=== PATIENT | female | born 1965 ===

== ENCOUNTER 2018-10-30 13:16 | Emergency (ER) | payer OTHER ==
[~2018-10-30] VITALS: Ht 160 cm; Wt 72.6 kg
[2018-10-30] MEDS ORDERED: ONDANSETRON ODT 4 MG TAB.RAPDIS SL ONE (13:45)
[2018-10-30] MEDS ORDERED: MORPHINE SULFATE 4 MG/1 ML DISP.SYRIN IM ONE (13:45)
[2018-10-30] MEDS ORDERED: ONDANSETRON ODT 4 MG TAB.RAPDIS ONE (13:52)
[2018-10-30] MEDS ORDERED: MORPHINE SULFATE 4 MG/1 ML DISP.SYRIN ONE (13:52)
--- NOTE | 2018-10-30 14:04 | NUR ---
Note undone in EDM - 10/30/18 at 1441 by NOE MSE COMPLETED, AL;L FLUIDS AND ANTIBIOTOCS,MEDS ADMIN AND CDOCUMENTED. PRESENTLY MONITOR SHOWS NSR, PO2=96% ON ROOMAIR, BP=96/60, ORAL TEMP=99.6. BELONGINGS LIST/MRSA-NARES SWAB DONE. AWAITING FOR YADIRA GOTTLIEB TO CALL BACK FOR REPORT. PT STATED"I FEEL MUCH BETTER!"
[2018-10-30] MEDS ORDERED: KETOROLAC TROMETHAMINE 60 MG INJ IM ONE ×2 (14:30→14:32)
--- NOTE | 2018-10-30 14:41 | NUR ---
Patient discharged to home in stable conditon. Written and verbal after care instructions given. Patient verbalizes understanding of instructions. pT ambulatory with a steady gait, SON PRESENT AND TO DRIVE.
[2018-10-30 14:43] VITALS: BP 110/74
== END 2018-10-30 14:43 | disposition home or self-care (01) ==
LOC: ER 13:19
DX: M25.511 Pain in right shoulder (principal)
CPT/HCPCS: 73030; 96372; 99283; J2270; A4663; J1885; Q0162